=== PATIENT | male | born 1980 | race Asian ===

== ENCOUNTER 2018-08-30 15:31 | Emergency (ER) | payer OTHER ==
--- NOTE | 2018-08-30 17:31 | EDPHY ---
H & P Stated Complaint: Woozy from eating edibles Time Seen by Provider: 08/30/18 17:31 - Personal History Current Tetanus/Diphtheria Vaccine: Yes - Medical/Surgical History Hx Asthma: No Hx Chronic Respiratory Disease: No Hx Diabetes: No Hx Cardiac Disease: No Hx Renal Disease: No Hx Cirrhosis: No Hx Alcoholism: No Other PMH: Denies - Social History Smoking Status: Never smoked Constitutional: Initial Vital Signs Temperature (C) 36.4 C 08/30/18 15:37 Heart Rate 67 08/30/18 15:37 Respiratory Rate 18 08/30/18 15:37 Blood Pressure 134/103 H 08/30/18 15:37 O2 Sat (%) 96 08/30/18 15:37 O2 Delivery Mode Room Air Allergies/Adverse Reactions: No Known Allergies Allergy (Unverified 08/30/18 15:39) Home Medications: Medication Instructions Recorded NK [No Known Home Meds] 08/30/18 Medical Decision Making ED Course/Re-evaluation: CHIEF COMPLAINT: Headache and feeling "woozy" after edibles HISTORY OF PRESENT ILLNESS: The patient is a 38 y/o male complaining of a headache and feeling "woozy" after eating edibles and drinking alcohol on Monday, 3 days ago. While out partying with a friend he had some edibles and alcohol. While out, his friend told him that he "passed out for 2 minutes". He denies a history of syncopal episodes. His friend noticed that the patient, who was sitting, passed out so he lowered him to the ground. The patient denies hitting his head, which his friend corroborates. During that night he was able to make it home and had 1 episode of vomiting. On Monday he "felt off", nauseous, and had a headache. He denies seeing any signs of head trauma. For the last two days he has had a " lack of focus", which is odd as this has not happened after marijuana or alcohol in the past. 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 He started looking on the internet and became concerned as he believes his symptoms are consistent with a concussion. In addition to his headache and "lack of focus", he has had a sore throat for several days that are improving. He denies dropping items, difficulty typing. No fever, headache, chest pain, chest pain, urinary or bowel complaints, numbness, paresthesias. REVIEW OF SYSTEMS: A comprehensive 10 system review of systems is otherwise negative aside from elements mentioned in the history of present illness and medical decision making. PHYSICAL EXAM: HR, BP, O2 Sat, RR. Temp noted General Appearance: Sitting in a dark room, alert, well hydrated, appropriate, and non-toxic appearing. Head: Atraumatic without scalp tenderness or obvious injury Eyes: Pupils equal, round, reactive to light and accommodation, EOMI, no trauma , no injection. Ears: Clear bilaterally, no perforation, normal landmarks Nose: Atraumatic, no rhinorrhea, clear. Throat: There is no erythema or exudates, no lesions, normal tonsils, mucus membranes moist. Neck: Supple, 2+ carotid upstroke, nontender, no lymphadenopathy. Respiratory: No retractions, no distress, no wheezes, and no accessory muscle use. Lungs are clear to auscultation bilaterally. Cardiovascular: Regular rate and rhythm, no murmurs, rubs, or gallops. Bilateral carotid, radial, dorsalis pedis, and posterior tibial pulses intact. Good capillary refill all extremities. Gastrointestinal: Abdomen is soft, nontender, non-distended, no masses, no rebound, no guarding, no peritoneal signs. Musculoskeletal: Normal active ROM of all extremities, atraumatic. Neurological: Alert, appropriate, and interactive. The patient has normal DTRs and non-focal cranial nerves, motor, sensory, and cerebellar exam. Skin: No rashes, good turgor, no nodules on palpation. Past medical history: Denies Past surgical history: Denies Family history: Denies Social history: emd special education teacher at , , lives in [place] DIAGNOSTICS/PROCEDURES/CRITICAL CARE TIME: Not indicated. DIFFERENTIAL DIAGNOSIS: The differential diagnosis for the patient's head injury included but was not limited to concussion, skull fracture, intra-parenchymal contusion, subarachnoid , subdural and epidural hematoma. MEDICAL DECISION MAKING: The patient is a 38 y/o male presenting with a headache and feeling "woozy" secondary to passing out after eating edibles and drinking alcohol on Monday, 3 days ago. He denies hitting his head and has no signs of head trauma. He has a normal neurological exam. I have extensively discussed the signs and symptoms associated with a concussion. Based on his symptoms, I believe he has post- concussive syndrome. I have offered the patient a brain MRI and discussed the risks and benefits associated with a MRI. He has politely declined the brain MR. Strict post-concussion syndrome precautions provided. This patient would like to follow up with Dr. Rogers as needed. Return precautions provided; patient is comfortable with this plan. Departure - Departure Disposition: Home, Routine, Self-Care Clinical Impression: Post concussion syndrome Condition: Good Instructions: Post Concussion Syndrome (ED) Additional Instructions: 1. Apply ice to sore areas and take 600mg ibuprofen every 6-8 hours or 650mg Tylenol every 4-6 hours for pain for the next few days. 2. Cognitive rest while symptoms are present. Avoid screen time including TV, phones, and computers until symptoms improve. 3. Physical rest while symptoms are present. Avoid any activities that could put you at further risk for a head injury until your symptoms resolve including contact sports, bicycling, etc. This may be 2 weeks or longer. 4. Follow up with Dr. Rogers, head injury specialist, for unimproved symptoms over the next 10-14 days. It's not uncommon to experience fatigue, mood swings, and difficulty concentrating with concussions. 5. Return to the ED for severe headache, weakness or numbness on one side of your body, vision changes, or other worsening of condition. Referrals: BRIGITTE MATT [Primary Care Provider] - As per Instructions Sirisha Rogers MD [Medical Doctor] - As per Instructions Report Scribed for: Jorden Miranda Report Scribed by: Flavia Jimenes Date of Report: 08/30/18 Time of Report: 17:49
[2018-08-30 17:53] VITALS: BP 125/88
== END 2018-08-30 18:09 | disposition home or self-care (01) ==
DX: F07.81 Postconcussional syndrome (principal)